=== PATIENT | male | born 1990 | race Two or more races ===

== ENCOUNTER 2018-05-11 00:36 | Observation (INO) | payer SELFPAY ==
[~2018-05-11] VITALS: Ht 157.5 cm; Wt 59.0 kg
[2018-05-11 02:12] LABS: Amphetamine Screen, Urine NEGATIVE (NEGATIVE); Barbiturate Scree,Urine NEGATIVE (NEGATIVE); Benzodiazephine Screen, Urine NEGATIVE (NEGATIVE); Cannabinoid Screen, Urine POSITIVE (NEGATIVE); Cocaine Screen, Urine NEGATIVE (NEGATIVE); Phencyclidine Screen, Urine NEGATIVE (NEGATIVE)
[2018-05-11 02:19] LABS: Opiate Scree,Urine NEGATIVE (NEGATIVE)
[2018-05-11 02:32] LABS: Urine Bacteria NONE SEEN /hpf (None Seen); Urine Blood Negative /uL (Negative); Urine Mucus FEW (None Seen); Urine Specific Gravity 1.011 (1.001-1.035); Urine WBC 1 /hpf (0 - 3)
[2018-05-11 03:00] VITALS: BP 132/80
[2018-05-11] MEDS ORDERED: SODIUM CHLORIDE 0.9% 500 ML IV ONE (03:00)
[2018-05-11] MEDS ORDERED: LORazepam 2MG/ML-1ML VIAL IV ONE (03:00)
== END 2018-05-11 07:23 | disposition home or self-care (01) | DRG 93 ==
LOC: ER 00:36 → EDBD 00:36 → OVERFLOW 00:37 → ER 06:30
PROVIDERS: ADMIT Emergency Medicine; ATTEND Emergency Medicine
DX: G92 Toxic encephalopathy (principal); F41.9 Anxiety disorder, unspecified; F10.129 Alcohol abuse with intoxication, unspecified; F12.10 Cannabis abuse, uncomplicated
CPT/HCPCS: 71045; 80307; 81001; 96361; 96374; 99285; G0378; J2060; J7030